=== PATIENT | female | born 1935 ===

== ENCOUNTER 2022-02-05 15:31 | Inpatient (IN) | payer MEDICARE, OTHER ==
[~2022-02-05] VITALS: Ht 167.6 cm; Wt 70.6 kg
[2022-02-05 16:52] LABS: BASOPHILS ABSOLUTE AUTO 0.03 K/mm3 (0.00-0.23); BASOPHILS PERCENT AUTO 0 % (0-2); EOSINOPHILS ABSOLUTE AUTO 0.31 K/mm3 (0.00-0.68); EOSINOPHILS PERCENT AUTO 3 % (0-6); Hematocrit 24.4 % (33.0-51.0); Hemoglobin 7.6 g/dL (11.5-16.0); IMMATURE GRAN ABSOLUTE AUTO 0.06 K/mm3 (0.00-0.10); IMMATURE GRAN PERCENT AUTO 1 % (0-1); LYMPHOCYTES ABSOLUTE AUTO 0.66 K/mm3 (0.84-5.20); LYMPHOCYTES PERCENT AUTO 6 % (21-46); MONOCYTES ABSOLUTE AUTO 0.77 K/mm3 (0.16-1.47); MONOCYTES PERCENT AUTO 7 % (4-13); Mean Corpuscular HGB 30.6 pg (26.0-34.0); Mean Corpuscular HGB Conc 31.1 g/dL (31.5-36.5); Mean Corpuscular Volume 98 fL (80-100); Mean Platelet Volume 9.7 fL (9.1-12.4); NEUTROPHILS ABSOLUTE AUTO 9.05 K/mm3 (1.96-9.15); NEUTROPHILS PERCENT AUTO 83 % (41-73); Platelet Count 224 K/mm3 (150-400); RDW Coefficient Variation 17.9 % (11.7-14.2); RDW Standard Deviation 64.4 fL (35.1-46.3); Red Blood Cell Count 2.48 M/mm3 (3.80-5.20); White Blood Cell Count 10.88 K/mm3 (4.00-11.30)
[2022-02-05 17:10] LABS: Free Thyroxine 1.04 ng/dL (0.70-1.60)
--- NOTE | 2022-02-05 17:23 | NUR ---
ARRIVAL TO PCU/SHIFT SUMMARY PATIENT ARRIVED TO PCU AT [address] [facility] FROM [facility]. PATIENT BP IS HYPERTENSIVE, SEE VITAL SIGNS SECTION, AND TELE SINUS TACH 130. PATIENT NEURO IS ALERT AND ORIENTED X4, BUT VERY FORGETFUL AND WILL REPEAT THE SAME QUESTIONS MULTIPLE TIMES. PATIENT REPORTS NO CHEST PAIN/PRESSURE, NO SHORTNESS OF BREATH, OR PAIN. LUNG SOUNDS UPPER CLEAR LOWER DIM. STRONG RADIAL AND PEDIS PULSES. ABD SOFT NONTENDER ACTIVE. SCABS SCATTERED THROUGHOUT LOWER EXTREMITIES AND UPPER EXTREMITIES FROM SCRATCHING HERSELF. PATIENT HAS A LEFT FISUTAL WITH A THRILL AND BRUIT. MD HUDDLESTON (WHEEL MOLDER) IN TO PATIENT AND THIS RN NOIFED HIM OF THE EVENING LABS THAT CAME IN AND MD DECIDED TO DO DIALYSIS THIS EVENING. MD HUDDLESTON AND ANDRZEJ IN TO SEE PATIENT AND DISCUSSED THE PLAN OF CARE WITH THE PATIENT. PATIENT IS A STAND BY ASSIST TO THE BATHROOM. BED ALARM IS ON AND CALL LIGHT WITHIN REACH. THIS RN NOTIFED THE DIALYSIS NURSE. PATIENT RECEIVED PO LOPRESSOR FOR HYPERTENSION. WILL REASSESS BP. PATIENT BELONGINGS IN ROOM. CALL LIGHT WITHIN REACH AND BED IN LOWEST POSITION. HOME MED LIST NO COMPLETE. THIS RN CALLED THE PATIENTS SON AND DID NOT GET AN ANSWER, BUT LEFT A VOICEMAIL. WILL REPORT TO ON COMING RN. WILL CONTINUE TO MONITOR AND PROVIDE CARE UNTIL HAND OFF WITH NEXT SHIFT.
[2022-02-05 17:24] LABS: Albumin, Blood 3.1 g/dL (3.4-5.0); Albumin/Globulin Ratio 0.7 (0.8-1.8); Bilirubin, Total 0.4 mg/dL (0.1-1.0); Bun/Creatinine Ratio 14.2 (12.0-20.0); Calcium, Blood 6.4 mg/dL (8.5-10.1); Creatinine, Blood 8.54 mg/dL (0.40-1.00); Globulin, Blood 4.3 g/dL (2.2-4.0); Total Protein, Blood 7.4 g/dL (6.4-8.2)
[2022-02-05 17:34] LABS: Thyroid Stimulating Hormone 11.8 uIU/mL (0.360-4.800)
--- NOTE | 2022-02-05 18:11 | NUR ---
UPDATE ON PSYCHIATRIC SUMMARY TIMBER TREATMENT PLANT OPERATOR LUX HAS ARRIVED TO PATIENT ROOM.
[2022-02-06 03:38] LABS: BASOPHILS ABSOLUTE AUTO 0.02 K/mm3 (0.00-0.23); BASOPHILS PERCENT AUTO 0 % (0-2); EOSINOPHILS ABSOLUTE AUTO 0.25 K/mm3 (0.00-0.68); EOSINOPHILS PERCENT AUTO 3 % (0-6); Hematocrit 19.3 % (33.0-51.0); Hemoglobin 6.3 g/dL (11.5-16.0); IMMATURE GRAN ABSOLUTE AUTO 0.06 K/mm3 (0.00-0.10); IMMATURE GRAN PERCENT AUTO 1 % (0-1); LYMPHOCYTES PERCENT AUTO 6 % (21-46); MONOCYTES ABSOLUTE AUTO 0.56 K/mm3 (0.16-1.47); MONOCYTES PERCENT AUTO 7 % (4-13); Mean Corpuscular HGB 30.3 pg (26.0-34.0); Mean Corpuscular HGB Conc 32.6 g/dL (31.5-36.5); Mean Platelet Volume 9.6 fL (9.1-12.4); NEUTROPHILS ABSOLUTE AUTO 6.64 K/mm3 (1.96-9.15); NEUTROPHILS PERCENT AUTO 83 % (41-73); Platelet Count 190 K/mm3 (150-400); RDW Coefficient Variation 17.4 % (11.7-14.2); RDW Standard Deviation 58.3 fL (35.1-46.3); Red Blood Cell Count 2.08 M/mm3 (3.80-5.20); White Blood Cell Count 8.03 K/mm3 (4.00-11.30)
[2022-02-06 03:39] LABS: Mean Corpuscular Volume 93 fL (80-100)
[2022-02-06 03:57] LABS: Albumin, Blood 2.7 g/dL (3.4-5.0); Albumin/Globulin Ratio 0.7 (0.8-1.8); Bilirubin, Total 0.4 mg/dL (0.1-1.0); Creatinine, Blood 5.86 mg/dL (0.40-1.00); Globulin, Blood 3.8 g/dL (2.2-4.0); Magnesium, Blood 2.2 mg/dL (1.6-2.4); Phosphorus, Blood 4.9 mg/dL (2.5-4.9); Potassium, Blood 3.7 mmol/L (3.5-5.5); Total Protein, Blood 6.5 g/dL (6.4-8.2)
--- NOTE | 2022-02-06 06:25 | NUR ---
SHIFT SUMMARY ASSUMED CARE OF PT AT 1900. PT IS A/OX3, IMPULSIVE AND WONT USE HER CALL LIGHT. HEART SOUNDS REGULAR, LUNG SOUNDS CLEAR. PT WAS A 1P SBA TO BATHROOM. PT L FISTULA HAS BOTH BRUTE AND THRILL. PT WAS RECEIVING DIALYSIS AT THE START OF SHIFT. PT TOLERATED WELL. HBG WAS 6.3 THIS AM, FLAQUITO CONSULTED AND REQUESTED 1 UNIT PRBC GIVEN DURING DIALYSIS TODAY. PT SLEPT MOST OF THE NIGHY, NO COMPLAINTS.
[2022-02-06] MEDS ORDERED: EUTHYROX50 MCG PO (10:19)
[2022-02-06] MEDS ORDERED: AMLO5 PO (10:19)
[2022-02-06] MEDS ORDERED: RISP.5 PO (10:20)
--- NOTE | 2022-02-06 10:28 | NUR ---
CARE ASSUMPTION THIS RN ASSUMED CARE AT 0700 FROM [facility]I MEJIA. VSS. TELE SR 70S. PATIENT IS ALERT AND ORIENTED X3, GOT THE DAY WRONG. PERRLA. PATIENT HAS A HISTORY OF DEMENTIA. PATIENT IS FORGETFUL AND CONFUSED AT TIMES. PATIENT BED ALARM IS ON BECAUSE PATIENT WILL FORGET TO USE CALL LIGHT BEFORE GETTING OUT OF BED. LUNG SOUNDS CLEAR. PATIENT REPORTS NO PAIN. PATIENT REPORTS NO SHORTNESS OF BREATH. PATIENT REPORTS NO CHEST PAIN/PRESSURE. STRONG RADAIL PULSES AND PEDIS. CAP REFILL <3SECONDS. TRACE EDEMA IN LEGS. ABD SOFT NONTENDER AND ACTIVE. SCABS SCATTERED THROUGHOUT FROM PATIENT SCRATCHING HERSELF. SEE SHIFT ASSESSMENT FOR FUL DETAILS. MD HUDDLESTON IN TO SEE PATIENT THIS AM. MD DONNELLY IN TO SEE PATIENT THIS AM. PATIENT IS CURRENTLY RECEIVING DIALYSIS AND IS RECEIVING ONE UNIT OF BLOOD. PLAN IS FOR PATIENT TO GET STARTED BACK UP [place] [facility] [facility] SHE LIVES AND WILL HOPEFULLY TRANSFER [place] BACK [place] MON[place]. PATIENT IS AWARE OF THE PLAN. THIS RN WILL CONTACT THE SON TO GET A COMPLETED MEDICATION LIST AND UPDATE IT. CALL LIGHT WITHIN REACH, BED ALARM ON, AND BED IN LOWEST POSITION. WILL CONTINUE TO MONITOR AND PROVIDE CARE.
--- NOTE | 2022-02-06 11:42 | NUR ---
UPDATE DIALYSIS IS COMPLETED AND PATIENT RECEIVED ONE UNIT OF BLOOD DURING DIALYSIS. ONE LITER OUT FROM DIALYSIS.
--- NOTE | 2022-02-06 17:26 | NUR ---
SHIFT SUMMARY PATIENT NEURO REMAINS INTACT. VSS. BP A TAD HYPERTENSIVE THIS EVENING, BUT WILL BE RECEIVING EVENING BLOOD PRESSURE MEDICATION. AM BLOOD PRESSURE MEDICATION WAS HELD DUE TO DIALYSIS. PATIENT DID HAVE A LARGE BOWEL MOVEMENT, IT WAS LOOSE AND FORMED. IT RAN DOWN HER LEG AND WAS IN HER OWN PANTS. THIS RN AND NITZA STREETER HELPED CLEAN HER UP, GAVE HER A SHOWER, AND RINSED AND HUNG HER PANTS IN THE BATHROOM TO DRY. PATIENT DOES NOT USE CALL LIGHT AND NEEDS FREQUENT REMINDERS. BED ALARM ON. PATIENT CURRENTLY EATING DINNER SITTING IN BED. PATIENT WORKED WITH [employer] TODAY. NO ACUTE CHANGES THIS SHIFT. CALL LIGHT WITHIN REACH, BED IN LOWEST POSITION, AND BED ALARM ON. WILL CONTINUE TO MONITOR AND PROVIDE CARE UNTIL HAND OFF WITH NEXT SHIFT.
[2022-02-07 03:52] LABS: Hematocrit 22.6 % (33.0-51.0); Hemoglobin 7.3 g/dL (11.5-16.0)
[2022-02-07 04:09] LABS: Albumin, Blood 2.7 g/dL (3.4-5.0); Anion Gap 7 mmol/L (6-16); Blood Urea Nitrogen 47 mg/dL (8-24); Bun/Creatinine Ratio 10.6 (12.0-20.0); CO2, Blood 30 mmol/L (21-32); Calcium, Blood 7.1 mg/dL (8.5-10.1); Chloride, Blood 103 mmol/L (98-108); Creatinine, Blood 4.45 mg/dL (0.40-1.00); Glomerular Filtration Rate 9 (60-); Glucose, Blood 102 mg/dL (70-99); Magnesium, Blood 2.1 mg/dL (1.6-2.4); Phosphorus, Blood 3.5 mg/dL (2.5-4.9); Potassium, Blood 3.6 mmol/L (3.5-5.5); Sodium, Blood 140 mmol/L (136-145)
--- NOTE | 2022-02-07 06:11 | NUR ---
NOC SHIFT SUMMARY PT SLEPT WELL OVERNIGHT, ORIENTED X3-4 WITH SHORT TERM MEMORY LOSS AT TIMES. EASILY REORIENTED. ATTEMPTED TO REFUSE MEDICATIONS STATING "I DON'T NEED THOSE" - PT EDUCATED ON IMPORTANCE AND AGREEABLE TO ADMINISTRATION. SR ON TELEMETRY, ON RA. VSS PER PT TREND. NO COMPLAINTS OF PAIN. UNMEASURED VOID X1. WILL PASS ON TO DAY RN.
[2022-02-07 07:10] LABS: HBSAG SCREEN Negative (Negative); HCV AB <0.1 (0.0-0.9); HEP A AB, IGM Negative (Negative); HEP B CORE AB, IGM Negative (Negative)
--- NOTE | 2022-02-07 09:54 | NUR ---
AM NOTE PATIENT IS W HX OF SHORT-TERM MEMORY LOSS, DEMENTIA. SHE REPORTS THAT SHE IS STILL IN [facility] IN [place]. SHE IS A&O TO THE BEST OF HER ABILITIES SUCH SURROUNDINGS, SELF, AND FOLLOWING DIRECTIONS. TELE SR 70S. SPO2>90% RA. VSS. SBA, BED ALARM IN PLACE. PER SONI NO DIALYSIS TODAY. PATIENT IS FORGETFUL BUT IS EASILY REDIRECTED.
--- NOTE | 2022-02-07 17:41 | NUR ---
SHIFT SUMMARY PATIENT REMAINED PLEASANT AND COOPERATIVE W CARE. PATIENT IS STILL CONFUSED MOST OF THE TIME W KNOWN HX OF DEMENTIA AND SHORT-TERM MEMORY LOSS. PCU STATUS SWITCHED TO MED WO TELE THIS PM. SPO2>95% RA. VSS. CASE MANAGEMENT IS STILL WORKING ON [facility] IN [place]. PATIENT DENIES CP/PRESSURE, SOB, N/V, NUMBNESS/TINGLING AT THIS TIME. SHE REMAINS A SBA WITH A BED ALARM. NO ACUTE CHANGES TODAY. WILL CONTINUE TO MONITOR UNTIL REPORT GIVEN TO THE ONCOMING SHIFT.
--- NOTE | 2022-02-07 18:20 | NUR ---
I have reveiwed the nursing students documentation and am in agreement. Will continue to monitor unitl report given to oncoming rn. I spoke with Matt Thorpe son, Maurilio is the caregiver for his mother, but is not paid. The Morning Show Producer is Mariano, . Per Maurilio the patinet was admited to [facility] on hospice while he was hospitalized. Once he was discharged, his mother went back to live with him but they did not continues hospice. Currently they are living in a motel in [place], [place], but is working on finding a rental home. The patient will need transportation set up to take her home.
--- NOTE | 2022-02-07 23:00 | NUR ---
ASSUMED CARE PT IS SLEEPING. PT CURRENTLY ON ROOM AIR. THIS NURSE HAS REVIEWED SHIFT ASSSESMENT AND THERE ARE NO CHANGES. BED ALARM IS ACTIVE. CALL LIGHT IS WITHIN REACH.
[2022-02-08 04:24] LABS: Hematocrit 23.7 % (33.0-51.0); Hemoglobin 7.7 g/dL (11.5-16.0)
[2022-02-08 04:46] LABS: Albumin, Blood 2.6 g/dL (3.4-5.0); Anion Gap 8 mmol/L (6-16); Blood Urea Nitrogen 59 mg/dL (8-24); Bun/Creatinine Ratio 9.9 (12.0-20.0); CO2, Blood 28 mmol/L (21-32); Calcium, Blood 6.5 mg/dL (8.5-10.1); Chloride, Blood 103 mmol/L (98-108); Creatinine, Blood 5.98 mg/dL (0.40-1.00); Glomerular Filtration Rate 6 (60-); Glucose, Blood 101 mg/dL (70-99); Magnesium, Blood 2.1 mg/dL (1.6-2.4); Phosphorus, Blood 3.9 mg/dL (2.5-4.9); Potassium, Blood 4.1 mmol/L (3.5-5.5); Sodium, Blood 139 mmol/L (136-145)
--- NOTE | 2022-02-08 06:54 | NUR ---
SHIFT SUMMARY PT IS ALERT. PT HAS BEEN SLEEPING T/O THE NIGHT. THERE HAVE BEEN NO ACUTE CHANGES T/O THE NIGHT. VITALS ARE STABLE AND IS ON ROOM AIR. PT HAS BEEN ASKED IF NEEDING TO GET UP TO THE BATHROOM AND REFUSES AT THE TIME. SHE WAS AGITATED THIS AM BECAUSE SHE WAS AWAKEN "ALL THE TIME" BUT WAS WOKEN UP ONLY FOR LABS, VITALS AND MEDS. CALL LIGHT IS WITHIN REACH.
--- NOTE | 2022-02-08 15:21 | NUR ---
SHIFT SUMMARY: FLUID VOLUME OVERLOAD PATIENT HAS A HX OF DEMENTIA BUT SO FAR THIS SHIFT HAS BEEN A&OX3. BP HAS BEEN ELEVATED BUT HAS BEEN GIVEN PO LOPRESSOR MEDICATION. OTHERWISE VS ARE WNL AND IS ON RA. DIALYSIS WAS DONE TODAY 02/08/22 IN THE ROOM. PATIENT HAS FISTULA ON LEFT ARM. SHE IS TOLERATING PO INTAKE. ATTENDS ARE IN PLACE. PATIENT IS A SBA WITH FWW AND GAIT BELT TO THE BATHROOM. BED ALARM ON. WORKED WITH PT AND OT TODAY. CALL LIGHT WITHIN REACH. THE PLAN IS WAITING FOR AN OUTPATIENT DIALYSIS BED IN [place] AND AWAITING TO HEAR BACK FROM SON WHO IS ALSO CAREGIVER.
[2022-02-09 04:17] LABS: Hematocrit 25.3 % (33.0-51.0)
[2022-02-09 04:43] LABS: Albumin, Blood 2.7 g/dL (3.4-5.0); Anion Gap 6 mmol/L (6-16); Blood Urea Nitrogen 39 mg/dL (8-24); Bun/Creatinine Ratio 7.8 (12.0-20.0); CO2, Blood 33 mmol/L (21-32); Calcium, Blood 7.1 mg/dL (8.5-10.1); Chloride, Blood 102 mmol/L (98-108); Glomerular Filtration Rate 8 (60-); Glucose, Blood 101 mg/dL (70-99); Magnesium, Blood 2.2 mg/dL (1.6-2.4); Phosphorus, Blood 3.3 mg/dL (2.5-4.9); Sodium, Blood 141 mmol/L (136-145)
--- NOTE | 2022-02-09 06:43 | NUR ---
NOC SHIFT SUMMARY PT SLEPT WELL OVERNIGHT, ORIENTED X3-4 WITH SHORT TERM MEMORY LOSS. EASILY REORIENTED. VSS, ON RA. NO COMPLAINTS OF PAIN. WILL PASS ON TO DAY RN.
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
--- NOTE | 2022-02-09 17:29 | NUR ---
SHIFT SUMMARY; ASSUMED CARE AT 0700. AWAKE AND PLEASANT. ORIENTED TO SELF AND SURROUNDINGS. POOR HISTORIAN ON SITUATION AND CURRENT EVENTS. FISTUALA TO LEFT ARM, DIAYLSIS YESTERDAY. AMBULATES TO RESTROOM WITH STANDBY ASSIST. VSS, REPOSITIONS SELF ON GURNEY WITHOUT DIFFICULTY. ASSISTED WITH ORAL CARE AND ADL'S. REPORT TO MEDICAL FLOOR RN TO ASSUME CARE FOR IN HOUSE TRANSFER.
--- NOTE | 2022-02-09 19:00 | NUR ---
PT ADMITTED TO ROOM 359 FROM PCU 20. ALERT ORIENTED TO SELF, PLACE AND CIRCUMSTANCE. ORIENTED TO CALL LIGHT AND SARETY. SET BED ALARM. AMBULATED TO BATHROOM 1 SBA, STEADY. TOLERATED ADA DIET AND TAKING IN FLUIDS. WILL REOPRT TO BRIAN RN.
[2022-02-10 04:41] LABS: Hematocrit 24.9 % (33.0-51.0); Hemoglobin 7.9 g/dL (11.5-16.0)
[2022-02-10 04:57] LABS: Albumin, Blood 2.6 g/dL (3.4-5.0); Anion Gap 10 mmol/L (6-16); Blood Urea Nitrogen 53 mg/dL (8-24); Bun/Creatinine Ratio 8.1 (12.0-20.0); CO2, Blood 29 mmol/L (21-32); Calcium, Blood 6.7 mg/dL (8.5-10.1); Chloride, Blood 102 mmol/L (98-108); Creatinine, Blood 6.56 mg/dL (0.40-1.00); Glomerular Filtration Rate 6 (60-); Glucose, Blood 98 mg/dL (70-99); Magnesium, Blood 2.5 mg/dL (1.6-2.4); Phosphorus, Blood 4.1 mg/dL (2.5-4.9); Potassium, Blood 4.4 mmol/L (3.5-5.5); Sodium, Blood 141 mmol/L (136-145)
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
--- NOTE | 2022-02-10 17:34 | NUR ---
SHIFT SUMMARY PATIENT ALERT AND ORIENTED X3, UNABLE TO RECALL WHAT HOSPITAL THEY ARE IN. PATIENT IS FORGETFUL AT TIMES. 1 ASSIST TO THE BATHROOM. PATIENT HAD DIALYSIS TODAY. FISTULA IN LEFT ARM. NO ACUTE CHANGES THIS SHIFT. PATIENT DENIES ANY PAIN OR DISCOMFORT AT THIS TIME. CALL LIGHT WITHIN REACH, AND BED IN LOWEST POSITION.
--- NOTE | 2022-02-11 04:18 | NUR ---
SAP FICO ARCHITECT SUMMARY ADMITTED FOR FLUID OVERLOAD. PT IS A FULL CODE. SHE IS CURRENTLY STILL WAITING FOR PLACEMENT IN OUTPATIENT DIALYSIS IN [place]. PT IS ALERT AND ORIENTED X3, SHE BELIEVES THAT SHE IS IN [facility]. SHE HAS BEEN AMBULATING WELL WITH THE FWW TO THE RESTROOM. NO COMPLAINTS OF PAIN. SHE IS REQUESTING TO GO HOME SOON BUT WAS INFORMED OF THE NEED FOR PLACEMENT.
[2022-02-11 04:36] LABS: Hemoglobin 7.9 g/dL (11.5-16.0)
[2022-02-11 04:54] LABS: Albumin, Blood 2.6 g/dL (3.4-5.0); Anion Gap 8 mmol/L (6-16); Blood Urea Nitrogen 35 mg/dL (8-24); CO2, Blood 33 mmol/L (21-32); Calcium, Blood 7.2 mg/dL (8.5-10.1); Chloride, Blood 98 mmol/L (98-108); Creatinine, Blood 4.97 mg/dL (0.40-1.00); Glomerular Filtration Rate 8 (60-); Glucose, Blood 101 mg/dL (70-99); Magnesium, Blood 2.2 mg/dL (1.6-2.4); Phosphorus, Blood 3.9 mg/dL (2.5-4.9); Potassium, Blood 4.4 mmol/L (3.5-5.5); Sodium, Blood 139 mmol/L (136-145)
--- NOTE | 2022-02-11 18:09 | NUR ---
SHIFT SUMMARY: NO ACUTE EVENTS. DID NOT HAVE HD TODAY. A&O X 1-2, UNSURE OF WHAT HOSPITAL SHE'S IN. DENIED PAIN. DECLINED BATHING AND OTHER ADL'S. L ARM AV FISTULA WITH + THRILL AND BRUIT, SLIGHT ECCYMOSIS. APPETITE MODERATE, PICKY EATER. AMBULATED IN HALLWAY WITH FWW, GAIT STEADY. DENIED PAIN. AWAITING PLACEMENT.
--- NOTE | 2022-02-12 03:47 | NUR ---
Patient slept well overnight getting OOB twice to use bathroom with very minimal success. No complaint of pain or discomfort. left arm fistula has powerful bruit and thrill. Chastity asking about discharge so she can call her son to pick her up and take her back to [place].
[2022-02-12 04:52] LABS: Hematocrit 24.1 % (33.0-51.0); Hemoglobin 7.3 g/dL (11.5-16.0)
[2022-02-12 05:20] LABS: Magnesium, Blood 2.3 mg/dL (1.6-2.4)
[2022-02-12 05:24] LABS: Albumin, Blood 2.6 g/dL (3.4-5.0); Anion Gap 8 mmol/L (6-16); Blood Urea Nitrogen 50 mg/dL (8-24); Bun/Creatinine Ratio 7.6 (12.0-20.0); CO2, Blood 32 mmol/L (21-32); Calcium, Blood 6.4 mg/dL (8.5-10.1); Chloride, Blood 97 mmol/L (98-108); Creatinine, Blood 6.57 mg/dL (0.40-1.00); Glomerular Filtration Rate 6 (60-); Glucose, Blood 93 mg/dL (70-99); Phosphorus, Blood 4.7 mg/dL (2.5-4.9); Potassium, Blood 5.1 mmol/L (3.5-5.5); Sodium, Blood 137 mmol/L (136-145)
--- NOTE | 2022-02-12 15:29 | NUR ---
AOX2, FORGETFUL MOMENTS, ASKS REPEATIVE QUESTIONS. 1 PERSON ASST WITH FWW. PT COOPERATIVE WITH MEDICATIONS AND CARE. PT HAS FISTULA AT [facility], WENT TO DIALYSIS THIS AM. CURRENTLY DENIES PAIN. NO ACUTE CHANGES. CALL-LIGHT IN REACH, BED IN LOWEST POSITION.
--- NOTE | 2022-02-13 03:39 | NUR ---
Patient slept well. No complaints of pain or discomfort. OOB before HS to bathroom to attempt to urinate. Very minimal result if any in toilet. Patient continues to refuse HS cares from MANAGER SECURITY or this RN. Chastity is still asking if her son has been contacted to take her home. Left arm Fistula present with strong bruit and thrill.
[2022-02-13 05:03] LABS: Hematocrit 25.1 % (33.0-51.0); Hemoglobin 7.7 g/dL (11.5-16.0)
[2022-02-13 05:40] LABS: Albumin, Blood 2.6 g/dL (3.4-5.0); Anion Gap 6 mmol/L (6-16); Blood Urea Nitrogen 34 mg/dL (8-24); Bun/Creatinine Ratio 6.6 (12.0-20.0); CO2, Blood 32 mmol/L (21-32); Calcium, Blood 7.6 mg/dL (8.5-10.1); Chloride, Blood 102 mmol/L (98-108); Creatinine, Blood 5.16 mg/dL (0.40-1.00); Glomerular Filtration Rate 8 (60-); Glucose, Blood 95 mg/dL (70-99); Magnesium, Blood 2.4 mg/dL (1.6-2.4); Phosphorus, Blood 4.1 mg/dL (2.5-4.9); Potassium, Blood 4.8 mmol/L (3.5-5.5); Sodium, Blood 140 mmol/L (136-145)
--- NOTE | 2022-02-13 18:48 | NUR ---
SHIFT SUMMARY PATIENT A&OX2,FLAT AFFECT AND UPSET THAT SHE IS NOT GOING HOME. PATIENT ASKING MULTIPLE TIMES WHEN SHE IS GOING HOME. RECEIVED DIALYSIS YESTERDAY, NO DIALYSIS TODAY. PATIENT SLEPT MOST OF SHIFT IN BED. SBA TO BATHROOM BUT PATIENT C/O WEAKNESS WHEN DOING SO. DISCUSSED GOAL OF GETTING UP TO CHAIR FOR MEALS WITH PATIENT. PATIENT HESITENT BUT GOT UP FOR DINNER. VSS. WILL CONTINUE TO MONITOR.
--- NOTE | 2022-02-14 04:20 | NUR ---
SHIFT SUMMARY: PT IS ALERT AND ORIENTED WITH MINOR CONFUSION. PT IS A STANDBY ASSIST TO THE BATHROOM. PT USES CALL LIGHT AT TIMES, DID SET THE BED ALARM OFF ON ONE OCCASION. PT SLEPT MUCH OF THE NIGHT WHEN NOT DISTURBED. PT DENIES PAIN, NAUSEA, VOMITING, AND SOB. BED IN LOW POSITON, CALL LIGHT WITHIN REACH. WILL REPORT TO DAY NURSE.
[2022-02-14 04:53] LABS: Hematocrit 24.7 % (33.0-51.0); Hemoglobin 7.6 g/dL (11.5-16.0)
[2022-02-14 05:28] LABS: Albumin, Blood 2.7 g/dL (3.4-5.0); Anion Gap 9 mmol/L (6-16); Blood Urea Nitrogen 49 mg/dL (8-24); Bun/Creatinine Ratio 7.3 (12.0-20.0); CO2, Blood 28 mmol/L (21-32); Calcium, Blood 6.9 mg/dL (8.5-10.1); Chloride, Blood 102 mmol/L (98-108); Creatinine, Blood 6.75 mg/dL (0.40-1.00); Glomerular Filtration Rate 6 (60-); Glucose, Blood 97 mg/dL (70-99); Magnesium, Blood 2.4 mg/dL (1.6-2.4); Phosphorus, Blood 4.5 mg/dL (2.5-4.9); Potassium, Blood 5.3 mmol/L (3.5-5.5); Sodium, Blood 139 mmol/L (136-145)
[2022-02-14] MEDS ORDERED: METO25 PO (13:43)
== END 2022-02-14 15:58 | disposition home health service (06) | DRG 640 ==
LOC: MEDS 15:31 → PCU 15:31 → MEDS 02-09 17:59
PROVIDERS: Internal Medicine Nephrology; Student in an Organized Health Care Education/Training Program; ADMIT Internal Medicine
PROC: 5A1D70Z Performance of Urinary Filtration, Intermittent, Less than 6 Hours Per Day (ICD-10-PCS; principal; 2022-02-05)
PROC: 30233N1 Transfusion of Nonautologous Red Blood Cells into Peripheral Vein, Percutaneous Approach (ICD-10-PCS; 2022-02-06)
DX: E87.70 Fluid overload, unspecified (principal); N18.6 End stage renal disease; I13.2 Hypertensive heart and chronic kidney disease with heart failure and with stage 5 chronic kidney disease, or end stage renal disease; E87.2 Acidosis; E87.5 Hyperkalemia; R00.0 Tachycardia, unspecified; I50.9 Heart failure, unspecified; F03.90 Unspecified dementia, unspecified severity, without behavioral disturbance, psychotic disturbance, mood disturbance, and anxiety; E88.09 Other disorders of plasma-protein metabolism, not elsewhere classified; E86.9 Volume depletion, unspecified; E03.9 Hypothyroidism, unspecified; D63.1 Anemia in chronic kidney disease; Z99.2 Dependence on renal dialysis; Z90.710 Acquired absence of both cervix and uterus; Z79.899 Other long term (current) drug therapy
CPT/HCPCS: 36415; 36430; 71045; 76770; 80053; 80069; 80074; 83735; 83880; 84100; 84439; 84443; 85014; 85018; 85025; 86317; 86850; 86900; 86901; 86923; 93005; 93010; 97116; 97129; 97162; 97165; 97530; 97535; A9270; J0881; J1644; P9016